=== PATIENT | female | born 1935 | race Two or more races ===

== ENCOUNTER 2024-06-30 17:18 | Inpatient (IN) | payer MEDICARE ==
[~2024-06-30] VITALS: Ht 160 cm; Wt 45.4 kg
[2024-06-30] MEDS ORDERED: MORPHINE SULFATE INJ 4 MG/ML DISP.SYRIN ONE (18:30)
[2024-06-30 18:50] LABS: BASOPHILS # (AUTO) 0.1 K/uL (0.0-0.2); BASOPHILS % (AUTO) 0.6 % (0.0-2.0); EOSINOPHILS # (AUTO) 0.1 K/uL (0.0-0.7); EOSINOPHILS % (AUTO) 1.1 % (0.0-6.0); HEMATOCRIT 41 % (33-45); HEMOGLOBIN 14.1 g/dL (11.5-14.8); LYMPHOCYTES # (AUTO) 1.2 K/uL (0.8-4.8); LYMPHOCYTES % (AUTO) 11.3 % (20.0-44.0); MEAN CORPUSCULAR HEMOGLOBIN 27 PG (26.0-33.0); MEAN CORPUSCULAR HGB CONC 34 g/dl (31.0-36.0); MEAN CORPUSCULAR VOLUME 80 fL (82-100); MONOCYTES # (AUTO) 0.9 K/uL (0.1-1.30); MONOCYTES % (AUTO) 8.8 % (2.0-12.0); NEUTROPHILS # (AUTO) 8.3 K/uL (1.8-8.9); NEUTROPHILS % (AUTO) 78.2 % (43.0-81.0); PLATELET COUNT (AUTO) 234 K/uL (150-450); RED BLOOD CELL COUNT(AUTO) 5.16 MIL/uL (4.0-5.2); RED CELL DISTRIBUTION WIDTH 15.2 % (11.5-15.0); WHITE BLOOD COUNT (AUTO) 10.6 K/uL (4.3-11.0)
[2024-06-30] MEDS: MORPHINE SULFATE INJ 2 MG/ML DISP.SYRIN IV ONE (18:50)
[2024-06-30 19:12] LABS: CALCIUM, SERUM 9.8 mg/dL (8.5-10.1); CARBON DIOXIDE 27 mmol/L (21-32); CHLORIDE 108 mmol/L (98-107); CREATININE 0.7 mg/dL (0.6-1.3); GLUCOSE 123 mg/dL (74-106); POTASSIUM 4.1 mmol/L (3.5-5.1); SODIUM SERUM 141 mmol/L (136-145); UREA NITROGEN, BLOOD 24 mg/dL (7-18)
[2024-06-30 19:16] LABS: ALANINE AMINOTRANSFERASE 16 U/L (12-78); ALBUMIN 3.6 g/dL (3.4-5.0); ALKALINE PHOSPHATASE 64 U/L (46-116); ASPARTATE AMINOTRANSFERASE 18 U/L (15-37); BILIRUBIN,DIRECT 0.1 mg/dL (0.0-0.2); BILIRUBIN,TOTAL 0.5 mg/dL (0.2-1.0); TOTAL PROTEIN, SERUM 7.2 g/dL (6.4-8.2)
[2024-06-30 19:49] LABS: APPEARANCE,URINE SLIGHTLY CLOUDY (CLEAR); BILIRUBIN,URINE NEGATIVE (NEGATIVE); BLOOD, URINE 2+ Ery/uL (NEGATIVE); COLOR,URINE YELLOW (YELLOW); KETONES,URINE 1+ mg/dL (NEGATIVE); LEUKOCYTE ESTERASE ,URINE 1+ (NEGATIVE); NITRITE, URINE NEGATIVE (NEGATIVE); PH,URINE 6.5 (5.0-8.0); PROTEIN,URINE NEGATIVE (NEGATIVE); UGLUCOSE NEGATIVE (NEGATIVE); UROBILINOGEN,URINE 0.2 EU/dL (0.2)
[2024-06-30 20:03] LABS: BACTERIA,URINE Many /HPF (None Seen); SQUAMOUS EPITHELIAL CELL,UR Moderate /HPF (None Seen)
[2024-06-30 20:06] LABS: ADD URINE CULTURE YES; RBC,URINE 0-2 /HPF (0-2)
[2024-06-30] MEDS ORDERED: CEFTRIAXONE 1GM BAG (ER ONLY) 50 ML IV ONE (21:33)
[2024-06-30] MEDS: CEFTRIAXONE 1 G in IV D5W 50 ML IV ONE (21:34)
[2024-06-30] MEDS ORDERED: HYDROMORPHONE 1 MG/1 ML DISP.SYRIN ONE (21:54)
[2024-06-30] MEDS: HYDROMORPHONE 1 MG/1 ML DISP.SYRIN IV STA (21:55)
[2024-06-30 22:30] VITALS: BP 149/75; TEMP 97.9; O2SAT 92
[2024-06-30] MEDS ORDERED: ZOLPIDEM TARTRATE 5 MG TABLET PO PRN (23:30)
[2024-06-30] MEDS ORDERED: HYDROCODONE/APAP 5/325MG TABLET PO PRN (23:30)
[2024-06-30] MEDS ORDERED: CEFTRIAXONE 1 G in IV D5W 50 ML IV SCH (23:30)
[2024-06-30] MEDS ORDERED: MAG HYDROX/AL HYDROX/SIMETH 30 ML UDC PO PRN (23:30)
[2024-06-30] MEDS ORDERED: MAGNESIUM HYDROXIDE 30 ML UDC PO PRN (23:30)
[2024-06-30] MEDS ORDERED: ONDANSETRON HCL/PF 4 MG/2 ML VIAL IVP PRN (23:30)
[2024-06-30] MEDS ORDERED: Z GUARD REMEDY 4 OZ OINT TP PRN (23:30)
[2024-06-30] MEDS ORDERED: ACETAMINOPHEN 325 MG TABLET PO PRN (23:30)
[2024-07-01] MEDS ORDERED: CEFTRIAXONE 1GM BAG (ER ONLY) 0 ML IV ONE (00:08)
[2024-07-01] MEDS: IV 1/2NS 1000 ML 1,000 ML IV PRN (00:20)
[2024-07-01] MEDS: MORPHINE SULFATE INJ 2 MG/ML DISP.SYRIN IV PRN (06:10)
[2024-07-01 07:03] LABS: BASOPHILS % (AUTO) 0.2 % (0.0-2.0); HEMATOCRIT 39 % (33-45); HEMOGLOBIN 13.3 g/dL (11.5-14.8); LYMPHOCYTES # (AUTO) 1.1 K/uL (0.8-4.8); MEAN CORPUSCULAR HEMOGLOBIN 27 PG (26.0-33.0); MEAN CORPUSCULAR HGB CONC 34 g/dl (31.0-36.0); MEAN CORPUSCULAR VOLUME 79 fL (82-100); MONOCYTES # (AUTO) 1.1 K/uL (0.1-1.30); MONOCYTES % (AUTO) 8.5 % (2.0-12.0); NEUTROPHILS # (AUTO) 11.1 K/uL (1.8-8.9); NEUTROPHILS % (AUTO) 83.3 % (43.0-81.0); PLATELET COUNT (AUTO) 206 K/uL (150-450); RED BLOOD CELL COUNT(AUTO) 4.98 MIL/uL (4.0-5.2); RED CELL DISTRIBUTION WIDTH 14.3 % (11.5-15.0); WHITE BLOOD COUNT (AUTO) 13.3 K/uL (4.3-11.0)
[2024-07-01 07:40] LABS: CALCIUM, SERUM 9.3 mg/dL (8.5-10.1); CARBON DIOXIDE 29 mmol/L (21-32); CHLORIDE 105 mmol/L (98-107); CREATININE 0.6 mg/dL (0.6-1.3); GLUCOSE 123 mg/dL (74-106); PHOSPHORUS 3.1 mg/dL (2.5-4.9); POTASSIUM 3.7 mmol/L (3.5-5.1); SODIUM SERUM 142 mmol/L (136-145); UREA NITROGEN, BLOOD 16 mg/dL (7-18)
[2024-07-01 07:44] LABS: CHOLESTEROL 186 mg/dL (<200); HDL CHOLESTEROL 64 mg/dL (40-60); LDL 99 mg/dL (0-99); TRIGLYCERIDES 41 mg/dL (30-150)
[2024-07-01] MEDS ORDERED: PYRI60TA2 PO (08:12)
[2024-07-01] MEDS ORDERED: ATEN100T PO (08:12)
[2024-07-01] MEDS: PANTOPRAZOLE 40 MG VIAL IV SCH (08:36)
[2024-07-01] MEDS: hydrALAZINE HCL IV 20 MG VIAL IV PRN (08:37)
[2024-07-01 09:13] LABS: INR 1.08 (0.91-1.10); PROTHROMBIN TIME 11.4 SECS (9.2-11.1)
[2024-07-01 09:30] VITALS: BP 107/67
[2024-07-01 17:45] VITALS: BP 136/81
[2024-07-01 20:00] VITALS: BP 137/67; TEMP 98.6; O2SAT 96
[2024-07-01] MEDS: CEFTRIAXONE 1 G in IV D5W 50 ML IV SCH (21:42)
[2024-07-02] MEDS ORDERED: POLYMYXIN B SULFATE 500,000 UNITS ONE (05:23)
[2024-07-02] MEDS ORDERED: ANESTHESIA TRAY IN PYXIS 1 EA TRAY MC ONE (05:24)
[2024-07-02] MEDS ORDERED: BUPIVACAINE 0.25% 75 MG/30 ML VIAL ONE (05:24)
[2024-07-02] MEDS ORDERED: FENTANYL PF 100MCG/2ML AMPUL ONE (05:34)
[2024-07-02] MEDS ORDERED: ROCURONIUM BROMIDE 50 MG/5 ML ONE (05:34)
[2024-07-02] MEDS ORDERED: VASOPRESSIN INJ 20 UNIT/ML VIAL ONE (05:34)
[2024-07-02] MEDS ORDERED: TRANEXAMIC ACID 1,000 MG/10 ML VIAL ONE (05:35)
[2024-07-02 06:02] VITALS: BP_SYST 149; BP_SYST 60; BP_SYST 91; BP_DIAS 43; BP_DIAS 63; BP_DIAS 80; TEMP 98; TEMP 98.1; TEMP 98.3; O2SAT 95
[2024-07-02 07:00] VITALS: BP 144/69; TEMP 97.7; O2SAT 94
[2024-07-02 10:09] LABS: HEMOGLOBIN 13.5 g/dL (11.5-14.8)
[2024-07-02] MEDS: ATENOLOL 50 MG TABLET PO SCH (12:45)
[2024-07-02] MEDS: pyRIDostigmine BROMIDE 60 MG TABLET PO SCH (12:47)
[2024-07-02 16:00] VITALS: BP 156/69; TEMP 97.7; O2SAT 96
[2024-07-02 20:00] VITALS: BP 144/73; TEMP 98.4; O2SAT 99
[2024-07-03 08:00] VITALS: BP 159/74; TEMP 98.1; O2SAT 97
[2024-07-03] MEDS: ENOXAPARIN SODIUM 40 MG/0.4 ML DISP.SYRIN SQ SCH (09:09)
[2024-07-03] MEDS: ENSURE ENLIVE 237 ML LIQUID (VANILLA) PO SCH (13:55)
[2024-07-03 16:00] VITALS: BP 139/67; TEMP 97.9; O2SAT 95
[2024-07-04] MEDS ORDERED: PANTOPRAZOLE 40 MG TABLET.DR PO SCH (09:00)
== END 2024-07-03 18:45 | DRG 522 ==
LOC: ER 18:25 → MED 21:28
PROVIDERS: ADMIT Student in an Organized Health Care Education/Training Program; ATTEND Nurse Practitioner Acute Care
PROC: 0SRS0JZ Replacement of Left Hip Joint, Femoral Surface with Synthetic Substitute, Open Approach (ICD-10-PCS; principal; 2024-07-02)
DX: S72.002A Fracture of unspecified part of neck of left femur, initial encounter for closed fracture (principal); N39.0 Urinary tract infection, site not specified; E44.1 Mild protein-calorie malnutrition; Z68.1 Body mass index [BMI] 19.9 or less, adult; E86.0 Dehydration; E78.5 Hyperlipidemia, unspecified; I10 Essential (primary) hypertension; D72.829 Elevated white blood cell count, unspecified; W01.0XXA Fall on same level from slipping, tripping and stumbling without subsequent striking against object, initial encounter; G70.00 Myasthenia gravis without (acute) exacerbation; Y93.9 Activity, unspecified; Y92.009 Unspecified place in unspecified non-institutional (private) residence as the place of occurrence of the external cause; B96.89 Other specified bacterial agents as the cause of diseases classified elsewhere
CPT/HCPCS: 36415; 70450-TC; 71045-TC; 73502; 73552; 73560-TC; 73600-TC; 80048-TC; 80061-TC; 80076-TC; 81001; 82962-TC; 83735-TC; 84100-TC; 84443-TC; 85025-TC; 85027-TC; 85610-TC; 86850-TC; 87081-TC; 87086-TC; 88305-TC; 88311-TC; 93307-TC; 97110-TC; 97116-TC; 97530-TC; A4217; A4223; A6209; C1776; G0378; J0360; J0690; J0696; J1171; J1650; J2270; J2405; J2470; J2704; J3010; J3490; J7030; J7060